=== PATIENT | male | born 1950 | race Caucasian/White ===

== ENCOUNTER 2021-02-07 10:06 | Outpatient (CLI) | payer MEDICARE, SELFPAY ==
[2021-02-07 11:34] LABS: Prostate Specific Antigen 5.1 ng/mL (< OR = 4.0)
== END 2021-02-07 10:07 | disposition home or self-care (01) ==
LOC: ANHLAB 10:14
PROVIDERS: PCP Family Medicine Adolescent Medicine; Visit Provider Urology
DX: C61 Malignant neoplasm of prostate (principal)
CPT/HCPCS: 36415; 84153

== ENCOUNTER 2022-04-01 12:13 | Outpatient (CLI) | payer MEDICARE, SELFPAY ==
[2022-04-01 13:25] LABS: Prostate Specific Antigen 7.2 ng/mL (< OR = 4.0)
== END 2022-04-01 12:14 | disposition home or self-care (01) ==
PROVIDERS: PCP Family Medicine Adolescent Medicine; Visit Provider Urology
DX: C61 Malignant neoplasm of prostate (principal)
CPT/HCPCS: 36415; 84153

== ENCOUNTER 2023-10-22 08:37 | Outpatient (CLI) | payer MEDICARE, SELFPAY ==
[2023-10-22 09:45] LABS: Alanine Aminotransferase 20 U/L (6-50); Albumin Level 4.1 g/dL (3.5-5.1); Alkaline Phosphatase 79 U/L (38-126); Anion Gap 8 mmol/L (8-16); Aspartate Amino Transferase 24 U/L (17-59); Bilirubin,Total 0.5 mg/dL (0.2-1.3); Blood Urea Nitrogen 29 mg/dL (9-20); Calcium 9.4 mg/dL (8.4-10.2); Carbon Dioxide 27 mmol/L (22-30); Chloride 105 mmol/L (98-107); Estimated Glomerular Filt Rate 50; Glucose 94 mg/dL (65-110); Potassium 3.6 mmol/L (3.4-5.0); Sodium 140 mmol/L (137-145)
== END 2023-10-22 08:38 | disposition home or self-care (01) ==
PROVIDERS: PCP Family Medicine Adolescent Medicine; Visit Provider Family Medicine Adolescent Medicine
DX: I10 Essential (primary) hypertension (principal)
CPT/HCPCS: 36415; 80053

== ENCOUNTER 2023-10-22 08:43 | Outpatient (CLI) | payer MEDICARE, SELFPAY ==
[2023-10-22 10:14] LABS: Prostate Specific Antigen 1.1 ng/mL (< OR = 4.0)
== END 2023-10-22 08:44 | disposition home or self-care (01) ==
PROVIDERS: PCP Family Medicine Adolescent Medicine; Visit Provider Urology
DX: C61 Malignant neoplasm of prostate (principal)
CPT/HCPCS: 36415; 80053; 84153